=== PATIENT | female | born 1980 | race Caucasian/White ===

== ENCOUNTER 2021-04-05 06:54 | Emergency (ER) | payer SELFPAY ==
[~2021-04-05] VITALS: Ht 170.2 cm; Wt 105.5 kg
--- NOTE | 2021-04-05 07:45 | PHYS DOC ---
Past History Past Surgical History: Other Additional Past Surgical Histo: knee General Adult EDM: Chief Complaint: CPR/FULL ARREST HPI: HPI: 41-year-old female presents via EMS as a CODE BLUE. The entire history comes from family and EMS reports. The patient was diagnosed COVID-positive on March 28. She was at home talking about having body aches and not feeling well. Her was talking with her and they were trying to get her dressed to come to the hospital. Every time she stood up she stated that she was very dizzy. The patient then laid back on the bed and the looked at her and did not think she was breathing. He checked her and found that she was not breathing. They then called 911. When EMS arrived they started CPR and ponce sported her to the emergency room. The patient had at least 2 rounds of epinephrine and continuous compressions prior to arrival. An I-gel was in place. EMS had PEA and then asystole. No shocks were given. Review of Systems: Review of Systems: Unable to assess due to critical condition Physical Exam: PE: Constitutional: Well developed, well nourished, obese, severe acute distress. [] HENT: Normocephalic, atraumatic, bilateral external ears normal, oropharynx moist, no oral exudates, bloody discharge coming from the nasal passages and oropharynx. I gel in place [] Eyes: Fixed and dilated [] Neck: No obvious signs of trauma r. [] Cardiovascular: Asystole [] Lungs & Thorax: Bilateral breath sounds coarse [] Abdomen: soft, no signs of trauma. [] Skin: Warm, dry, no erythema, no rash. [] Extremities: No cyanosis, no clubbing, no edema. [] Neurologic: Unresponsive [] [] Current Patient Data: Vital Signs: Vital Signs Date Time Temp Pulse Resp B/P (MAP) Pulse Ox O2 Delivery O2 Flow Rate FiO2 04/05/21 06:55 94.2 EKG: EKG: [] Radiology/Procedures: Radiology/Procedures: [] Heart Score: C/O Chest Pain: N/A Risk Factors: Risk Factors: DM, Current or recent (<one month) smoker, HTN, HLP, family history of CAD, obesity. Risk Scores: Score 0 - 3: 2.5% MACE over next 6 weeks - Discharge Home Score 4 - 6: 20.3% MACE over next 6 weeks - Admit for Clinical Observation Score 7 - 10: 72.7% MACE over next 6 weeks - Early Invasive Strategies Course & Med Decision Making: Course & Med Decision Making Pertinent Labs and Imaging studies reviewed. (See chart for details) On arrival the patient was moved to the hospital bed. Bagging the patient with the eye gel was moderately difficult. Decision was made to insert an endotracheal tube. I placed an endotracheal tube with significant difficulty. There was a lot of discharge and obstruction of the view. Made 1 attempt with a standard Fuller blade and the other 2 attempts for with glide scope. The patient's anatomy further complicated the situation. Once endotracheal tube was placed there was good colorimetric change. The patient had continuous compressions. There were multiple rounds of epinephrine and pulse checks. At no point did we have a pulse or significant electrical activity. The patient at 0712. See code sheet for further details. Dragon Disclaimer: Dragon Disclaimer: This electronic medical record was generated, in whole or in part, using a voice recognition dictation system. Departure Departure: Impression: Primary Impression: COVID-19 Additional Impression: Cardiopulmonary arrest Disposition: 20 Condition: Referrals: CAROLINA KHAN (PCP) GERSON TENA DO Apr 05, 2021 07:45
[2021-04-05] MEDS ORDERED: EPINEPHrine SYRINGE 1 MG/10 ML SYRINGE. ONE (08:00)
== END 2021-04-05 10:00 ==
LOC: ER 06:54
DX: U07.1 COVID-19 (principal); I46.9 Cardiac arrest, cause unspecified
CPT/HCPCS: 31500; 92950; 99285; J0171